=== PATIENT | female | born 1980 | race Asian ===

== ENCOUNTER 2016-09-25 11:14 | Inpatient (IN) | payer OTHER ==
[~2016-09-25] VITALS: Ht 160 cm; Wt 79.6 kg
[2016-09-25 11:31] VITALS: Ht 160 cm; Wt 79.6 kg
[2016-09-25] MEDS ORDERED: PRENAT PO (11:32)
[2016-09-25] MEDS ORDERED: LACTATED RINGER'S 1,000 ML IV ONE (12:30)
--- NOTE | 2016-09-25 12:44 | RADRPT ---
PROCEDURE: US OB biophysical profile. CLINICAL INDICATION: decreased movements, vaginal bleeding TECHNIQUE: Multiple sonographic images of the pelvis were obtained. The images were reviewed on a PACS workstation. COMPARISON: No prior studies are available for comparison. FINDINGS: There is a single viable intrauterine gestation. Cardiac activity is present with 158 beats per min [place]. There is a breech presentation. The placenta is left lateral. There is no evidence of placental abruption. The cervix could not be seen and therefore it is difficult to evaluate for possible low-lying placen ta. There is a normal amount of amniotic fluid with an MORRO = 15.2 cm. Biophysical profile: movement 2/2 tone 2/2. breathing 2/2 MORRO 2/2 Total 10/27 RPTAT: AA . IMPRESSION: Normal biophysical profile. Left lateral placenta with no evidence of abruption. Difficult evaluation for low-lying placenta due to an empty bladder. . .Errol Julien MD, MD Date Time Electronically viewed and signed by .Errol Julien MD, on 09/25/2016 12:43 .S/
--- NOTE | 2016-09-25 12:45 | RADRPT ---
PROCEDURE: US OB. CLINICAL INDICATION: Size and dates , bleeding TECHNIQUE: Multiple sonographic images of the pelvis and gravid uterus were obtained. The images were reviewed on a PACS workstation. COMPARISON: No prior studies are available for comparison. FINDINGS: The cervix was not seen. There is a single viable intrauterine gestation. Cardiac activity is present with 161 beats per min [place]. There is a breech presentation. The placenta is left lateral. There is no evidence for an abruption. Measurements were made in order to determine age. The results are as follows: BPD =8.2 cm HC =30 cm AC =29.3 cm FL =5.8 cm Estimated gestational age of approximately 32 weeks and 3 days based on ultrasound measurements. Clinical age: 32 weeks and 2 days. The estimated date of delivery is 11/17/16, based on ultrasound measurements. The EFW = 1960 g, 42%, based on LMP age. RPTAT: AA IMPRESSION: Single viable intrauterine gestation of approximately 32 weeks and 3 days based on ultrasound measu rements. .Errol Julien MD, MD Date Time Electronically viewed and signed by .Errol Julien MD, on 09/25/2016 12:45 .S/
[2016-09-25 12:50] LABS: ADD SCAN DIFF NO
[2016-09-25 12:51] LABS: BASOPHILS % 0.3 % (0.0-2.0); EOSINOPHILS # 0.1 10^3/ul (0.0-0.5); EOSINOPHILS % 0.7 % (0.0-7.0); HEMATOCRIT 36.2 % (37.0-47.0); HEMOGLOBIN 12.5 g/dl (12.0-16.0); LYMPHOCYTES # 1.5 10^3/ul (0.8-2.9); LYMPHOCYTES % 21.4 % (15.0-51.0); MEAN CORPUSCULAR HEMOGLOBIN 31.9 pg (29.0-33.0); MEAN CORPUSCULAR HGB CONC 34.5 g/dl (32.0-37.0); MEAN CORPUSCULAR VOLUME 92.3 fl (82.0-101.0); MEAN PLATELET VOLUME 10.8 fl (7.4-10.4); MONOCYTE # 0.7 10^3/ul (0.3-0.9); MONOCYTES % 9.6 % (0.0-11.0); NEUTROPHIL # 4.8 10^3/ul (1.6-7.5); NEUTROPHILS % 66.9 % (39.0-77.0); PLATELET COUNT 179 10^3/UL (140-415); RED BLOOD COUNT 3.92 10^6/ul (4.20-5.40); RED CELL DISTRIBUTION WIDTH 13.9 % (11.5-14.5); WHITE BLOOD COUNT 7.1 10^3/ul (4.8-10.8)
--- NOTE | 2016-09-25 13:48 | RADRPT ---
PROCEDURE: Limited obstetric ultrasound CLINICAL INDICATION: Bleeding TECHNIQUE: Multiple transverse and longitudinal grayscale images of the pelvis were obtained weaver sabdominally COMPARISON: same day FINDINGS: The cervix is closed with a length of 3.4 cm. There is a single viable intrauterine gestation. Cardiac activity is present with 139 beats per min [place]. There is a breech presentation. The placenta is left lateral. There is no evidence for an abruption or placenta previa. RPTAT: AA IMPRESSION: Cervix length measures 3.4 cm. .Errol Julien MD, MD Date Time Electronically viewed and signed by .Errol Julien MD, on 09/25/2016 13:48 .S/
--- NOTE | 2016-09-25 15:09 | HP ---
Date/Time of Note Date/Time of Note DATE: 09/25/16 TIME: 15:07 OB - History Hx of Present Free Text/Dictation 32+wks : 1 Para: 0 Care: Good Care Ultrasounds: Normal mid trimester US Obstetrical Complications: None Medical Complications: None Past Family/Social History * Past Medical, Surgical, Family and Obstetric Histories reviewed from chart. OB Admission Exam Physical Exam Abdomen: WNL Extremities: Normal Cervical Dilatation: None Effacement: 0% Station: Ballotable Membranes: Intact Heart Rate: 140's Accelerations: Accelerations Present Decelerations: No Decelerations Varibility: Moderate Contractions on Admission: >10 Minutes Apart Last 72 hours Lab Results CBC & BMP 09/25/16 12:35 OB Assessment/Plan Reason for admission: observation, labor Plan: Expectant Management Other plan: 1.Steroids 2.Mg 3.Perinatalogy consult 4.Neonatalogy consult BECKY GLYNN M.D. Sep 25, 2016 15:09
[2016-09-25] MEDS: LACTATED RINGER'S 1,000 ML IV SCH ×2 (15:59→16:01)
[2016-09-25] MEDS ORDERED: MAGNESIUM SULFATE 4 GM/100 ML 100 ML IV ONE (16:00)
[2016-09-25] MEDS ORDERED: ACETAMINOPHEN 325 MG TAB PO PRN (16:00)
[2016-09-25] MEDS: MAGNESIUM SULFATE 20 GM/500 ML 500 ML IV SCH ×2 (16:01→16:58)
[2016-09-25] MEDS: BETAMET NA PHOS/AC(6 MG/ML) 5ML INJ IM SCH (16:21)
--- NOTE | 2016-09-25 16:38 | TRIAGE ---
OB Triage Datetime Report Generated by CPN: 09/25/2016 16:37 Datetime: 09/25/2016 13:00 Labor Evaluation Frequency: 10 Monitor Mode: External Duration (sec)2399: 50-80 Quality: Mild Pattern: Normal: <= 5 Contractions in 10 Minutes Resting Tone [place]: Relaxed Heart Rate FHR Baseline Rate: 145 Monitor Mode: External US FHR Baseline Changes: No Baseline Change Variability: Moderate 6-25 bpm Accelerations: 15X15 Decelerations: None Category: Category I Datetime: 09/25/2016 11:30 Stage of : OB Triage Assessment Type: Triage Maternal Assessment Level of Consciousness: Fully Conscious DTR's/Clonus: DTRs 2+; No Clonus Headache: Denies Blurred Vision: No Respiratory Effort: Unlabored; Regular Rhythm; Equal Expansion Breath Sounds, Left: Clear and Equal Breath Sounds, Right: Clear and Equal Nausea/Vomiting: Denies RUQ Epigastric Pain: Denies Lower Extremities Edema: None Degree: None Upper Extremities Edema: None Degree: None Facial Edema: None Temperature Route: Oral Fall Risk Assessment History of Falling: (0) No Secondary Diagnosis: (0) No Ambulatory Aid: (0) Bedrest/Nurse Assist IV Therapy: (0) No Gait: (0) Normal/Bedrest/Immobile Mental Status: (0) Oriented to Own Ability Fall Score: 0 Fall Risk Score Definition: No Risk: No action required Labor Evaluation Frequency: 0 Monitor Mode: External Heart Rate FHR Baseline Rate: 150 Monitor Mode: External US FHR Baseline Changes: No Baseline Change Variability: Moderate 6-25 bpm Accelerations: 15X15 Decelerations: None Category: Category I Pain Assessment Pain Presence: None/Denies Pain Relief Measures: Comfort Measures Vaginal Exam Membrane Status: Intact Datetime: 09/25/2016 11:28 EGA: 32.2 Datetime: 09/25/2016 11:12 Time of Arrival: 09/25/2016 11:12 Arrived By: Ambulatory Arrived From: Home Chief Complaint: SPOTTING Movement: Present Contractions: Occasional Rupture of Membranes: Denies Vaginal Bleeding: None Vaginal Discharge: Denies Recent Sexual Intercouse: Denies Abdominal Trauma: Not Applicable Patient Complaints: Other Time Provider Notified: 09/25/2016 11:50 Provider Notified: Fernando Initial Plan: NST, BPP/MORRO, Placenta position, Cervical Length, CBC, Type and Screen
[2016-09-26] MEDS: MAGNESIUM SULFATE 20 GM/500 ML 500 ML IV SCH (02:30)
[2016-09-26] MEDS: LACTATED RINGER'S 1,000 ML IV SCH ×3 (02:44→12:55)
[2016-09-26] MEDS ORDERED: PRENATAL VITAMIN PO SCH (09:00)
[2016-09-26] MEDS ORDERED: MAGNESIUM SULFATE 20 GM/500 ML 500 ML IV SCH ×2 (11:53→15:00)
[2016-09-26] MEDS: BETAMET NA PHOS/AC(6 MG/ML) 5ML INJ IM SCH (16:02)
--- NOTE | 2016-09-26 21:28 | PD.PPDC ---
ARCHITECT MANAGER Discharge Instruction Condition Patient Condition: Good Diet Diet: Resume Regular Diet Activity/Restrictions Activity: May be up to bathroom May be up for meals May Shower Restrictions: No Exercising No Lifting Minimize Walking Minimize Stair-climbing No Sexual Activity Nothing in the Vagina No [place] No Tampons, douche Follow-up Follow-up with Physician: 2, Day/Days Return to clinic for LOOM CONTROL CHAIN BUILDER Instructions: Worsening abdominal pain Excessive Vaginal Bleeding ROSAURA GUERRERO MD Sep 26, 2016 21:28
[2016-09-26] MEDS ORDERED: NIFEdipine 10 MG CAP PO ONE (21:30)
--- NOTE | 2016-09-26 21:32 | DS ---
Date/Time of Note Date/Time of Note DATE: 09/26/16 TIME: 21:29 Obstetrical Discharge Record Final Diagnosis Final Diagnosis: not delivered Other Final Diagnosis contractions. Complications Labor Augmentation: No Induction: No Third Trimester Bleeding: Other (Contractions) Tocolytics: Magnesium Sulfate, Other (Procardia) Rupture of Membranes: No Condition on Discharge Physical Assessment Last Vitals: BP 121/70 Voiding: Yes Bowel Movement: Yes Breast: Soft, non-tender Fundus: Other (Gravid) Calf Tenderness: No Patient Condition: Good ROSAURA GUERRERO MD Sep 26, 2016 21:32
== END 2016-09-26 22:00 | disposition home or self-care (01) | DRG 778 ==
LOC: OBT 11:14 → L-D 11:17 → OBT 15:30 → OBG 15:43
PROVIDERS: ADMIT Obstetrics & Gynecology; ATTEND Obstetrics & Gynecology
DX: O60.03 Preterm labor without delivery, third trimester (principal); Z3A.32 32 weeks gestation of pregnancy
CPT/HCPCS: 36415; 76815; 76817; 76818; 83735; 85025; 86850; 86900; 86901; G0463; J0702; J3475; J7120

== ENCOUNTER 2016-11-02 04:00 | Inpatient (IN) | payer OTHER ==
[~2016-11-02] VITALS: Ht 160 cm; Wt 78.1 kg
[~2016-11-02 04:00] MED LIST: PRENAT PO
[2016-11-02 04:42] VITALS: Ht 160 cm; Wt 78.1 kg
[2016-11-02 04:43] VITALS: BP 138/80; PULSE 105; RESP 19
[2016-11-02] MEDS ORDERED: METHYLERGONOVINE 0.2 MG INJ IM PRN ×2 (05:00→09:30)
[2016-11-02] MEDS ORDERED: MISOPROSTOL 200 MCG TAB PR PRN ×2 (05:00→09:30)
[2016-11-02] MEDS ORDERED: CEFAZOLIN 2 GM/50 ML (PMX) 50 ML IV SCH (05:00)
[2016-11-02] MEDS ORDERED: OXYTOCIN 30 UNITS/LR 500 ML IV PRN ×3 (05:00→09:30)
[2016-11-02] MEDS ORDERED: CARBOPROST 250 MCG INJ IM PRN ×2 (05:00→09:30)
[2016-11-02] MEDS ORDERED: BUTORPHANOL 2 MG INJ IV PRN ×2 (05:30)
[2016-11-02] MEDS ORDERED: ONDANSETRON 4 MG INJ IV STA (06:21)
[2016-11-02] MEDS ORDERED: CITRIC ACID/NA CITRATE 30 ML CUP ONE (06:24)
[2016-11-02] MEDS ORDERED: ONDANSETRON 4 MG INJ ONE (06:24)
[2016-11-02] MEDS ORDERED: CITRIC ACID/NA CITRATE 30 ML CUP PO ONE (06:30)
[2016-11-02 06:32] LABS: BASOPHILS % 0.3 % (0.0-2.0); EOSINOPHILS % 0.3 % (0.0-7.0); HEMATOCRIT 39.1 % (37.0-47.0); HEMOGLOBIN 13.2 g/dl (12.0-16.0); LYMPHOCYTES # 1.6 10^3/ul (0.8-2.9); LYMPHOCYTES % 15.7 % (15.0-51.0); MEAN CORPUSCULAR HEMOGLOBIN 31.2 pg (29.0-33.0); MEAN CORPUSCULAR HGB CONC 33.8 g/dl (32.0-37.0); MEAN CORPUSCULAR VOLUME 92.4 fl (82.0-101.0); MONOCYTE # 0.9 10^3/ul (0.3-0.9); MONOCYTES % 9.5 % (0.0-11.0); NEUTROPHIL # 7.2 10^3/ul (1.6-7.5); NEUTROPHILS % 73.4 % (39.0-77.0); PLATELET COUNT 168 10^3/UL (140-415); RED BLOOD COUNT 4.23 10^6/ul (4.20-5.40); RED CELL DISTRIBUTION WIDTH 13.3 % (11.5-14.5); WHITE BLOOD COUNT 9.9 10^3/ul (4.8-10.8)
[2016-11-02] MEDS ORDERED: PHENYLephrine (100 MCG/ML) 5ML SYG ONE (06:36)
[2016-11-02] MEDS ORDERED: morphine SULFATE/PF (10 MG/10 ML) INJ ONE (06:36)
[2016-11-02] MEDS ORDERED: OXYTOCIN 10 UNIT INJ ONE (06:37)
[2016-11-02 06:59] LABS: INR 0.85; PROTIME 11.6 Sec (12.2-14.2); PT RATIO 0.9
[2016-11-02 07:00] LABS: PARTIAL THROMBOPLASTIN TIME 31.2 Sec (25.0-35.0)
[2016-11-02] MEDS ORDERED: BUPIVACAINE 0.25% (MPF) 30 ML INJ ONE (07:02)
[2016-11-02] MEDS ORDERED: FENTAnyl 50 MCG/ML VIAL ONE ×2 (07:36→08:06)
[2016-11-02] MEDS ORDERED: PROPOFOL 20 ML ONE (07:46)
[2016-11-02] MEDS ORDERED: MIDAZOLAM 1 MG/ML 2 ML INJ ONE (07:55)
[2016-11-02] MEDS ORDERED: KETOROLAC 30 MG INJ ONE (08:10)
[2016-11-02] MEDS ORDERED: DEXAMETHASONE 4 MG/ML 1 ML INJ ONE (08:11)
[2016-11-02] MEDS ORDERED: NALOXONE (0.4 MG/ML) INJ IV PRN (09:00)
[2016-11-02] MEDS ORDERED: ZOLPIDEM 5 MG TAB PO PRN (09:00)
[2016-11-02] MEDS ORDERED: KETOROLAC 30 MG INJ IV PRN (09:00)
[2016-11-02] MEDS ORDERED: ONDANSETRON 4 MG INJ IV PRN (09:00)
[2016-11-02] MEDS ORDERED: DIPHENHYDRAMINE 50 MG INJ IV PRN (09:00)
--- NOTE | 2016-11-02 09:20 | OPR ---
Operative Report Planned Procedure Procedure date Nov 02, 2016 Procedure(s) Primary section Performed by: ROSAURA GUERRERO MD Assisting provider: YVAN TREVINO MD Anesthesiologist: DANA FAUSTIN Pre-procedure diagnosis IUP at 37w 5d Breech. Ruptured membranes-in labor. Anesthesia Type: spinal Procedure Description Under satisfactory spinal anesthesia, the patient was prepped and draped and placed in a supine position, tilted to the left. Pfannenstiel incision was made , carried through the subcutaneous tissue. Bleeders brought under control with electrocautery. Fascia incised to the length of the incision. Rectus muscles from the fascia, divided midline. Peritoneum exposed, entered through a transverse incision. Exploration of abdomen revealed gravid uterus. Bladder flap was developed. Transverse incision was made in the lower segment of the uterus. Amniotic sac ruptured. Clear amniotic fluid noted. Baby was footing breech and delivered relatively easily. Nasal oropharyngeal suction was performed. The baby was handed to the team for immediate attention. The placenta was did not deliver readily and the left sided portion had some difficulty from the uterus but was delivered intact. Uterine cavity was cleaned with wet sponge. Uterus closed in 2 layers using #1 chromic in continuous fashion. Peritoneal cavity irrigated with warm saline. Sponge, needle and instrument count reported to be correct. Abdominal peritoneum closed with 2-0 chromic continuously. Rectus muscle approximated with the same suture. Fascia closed with 0-Vicryl, and subcutaneous tissue closed with 2-0 chromic and the skin was closed with 3-0 Monocryl in a subcuticular stitch. Steristrips with Benzoin were placed on the incision and a pressure dressing was applied over all. Estimated blood loss 800mL. Post-Procedure Post-procedure diagnosis Same. Findings: Live Baby boy, Apgars 8 and 9, weight 4235 grams or 9# 5 oz, footling breech Complications: None Pt Condition post procedure: stable Disposition: PACU Physician Certification I, the undersigned physician, hereby certify that I have discussed the procedure described in this consent form with this patient (or the patient's legal senior patient account representative), including: * The risk and benefits of the procedure; * Any adverse reactions that may reasonably be expected to occur; * Any alternative efficacious methods of treatment which may be medically viable ; * The potential problems that may occur during recuperation; * Potential for blood transfusion and associated risks/benefits; and * Any research or economic interest I may have regarding this treatment. I further certify that the patient/legally responsible person was encouraged to ask question and that all questions were answered. ROSAURA GUERRERO MD Nov 02, 2016 09:20
[2016-11-02] MEDS ORDERED: OXYTOCIN 30 UNITS/LR 500 ML IV SCH ×2 (09:30)
[2016-11-02] MEDS ORDERED: OXYCODONE/ACETAMINOPHEN (5/325) TAB PO PRN (09:30)
[2016-11-02] MEDS: OXYTOCIN 30 UNITS/LR 500 ML IV SCH ×2 (10:50→13:10)
[2016-11-02] MEDS: HYDROmorphONE 1 MG/ML SYG IV PRN ×4 (10:55→23:06)
[2016-11-02 12:10] VITALS: BP 140/80; PULSE 95; RESP 17
[2016-11-02] MEDS: IBUPROFEN 800 MG TAB PO SCH ×2 (13:33→22:00)
[2016-11-02] MEDS: LACTATED RINGER'S 1,000 ML IV SCH ×3 (15:26→23:06)
[2016-11-02 16:20] VITALS: BP 115/71; PULSE 109; RESP 18
[2016-11-02 20:00] VITALS: BP 120/65; PULSE 75; RESP 20
[2016-11-03] MEDS: HYDROmorphONE 1 MG/ML SYG IV PRN ×2 (02:24→07:20)
[2016-11-03 04:08] VITALS: BP 120/65; PULSE 85; RESP 20
[2016-11-03] MEDS: IBUPROFEN 800 MG TAB PO SCH ×3 (06:00→21:41)
[2016-11-03] MEDS: LACTATED RINGER'S 1,000 ML IV SCH (06:49)
[2016-11-03 07:20] VITALS: BP 127/62; PULSE 102; RESP 20
[2016-11-03] MEDS: SENNA/DOCUSATE NA (8.6MG/50MG) TAB PO PRN ×2 (09:36→21:41)
[2016-11-03] MEDS: OXYCODONE/ACETAMINOPHEN (5/325) TAB PO PRN (10:47)
[2016-11-03 12:37] LABS: BASOPHILS % 0.2 % (0.0-2.0); EOSINOPHILS % 0.2 % (0.0-7.0); HEMATOCRIT 27.2 % (37.0-47.0); HEMOGLOBIN 9.3 g/dl (12.0-16.0); LYMPHOCYTES # 1.5 10^3/ul (0.8-2.9); LYMPHOCYTES % 11.9 % (15.0-51.0); MEAN CORPUSCULAR HEMOGLOBIN 32.3 pg (29.0-33.0); MEAN CORPUSCULAR HGB CONC 34.2 g/dl (32.0-37.0); MEAN CORPUSCULAR VOLUME 94.4 fl (82.0-101.0); MEAN PLATELET VOLUME 11.3 fl (7.4-10.4); MONOCYTE # 0.9 10^3/ul (0.3-0.9); MONOCYTES % 7.2 % (0.0-11.0); NEUTROPHILS % 78.7 % (39.0-77.0); PLATELET COUNT 150 10^3/UL (140-415); RED BLOOD COUNT 2.88 10^6/ul (4.20-5.40); RED CELL DISTRIBUTION WIDTH 13.3 % (11.5-14.5); WHITE BLOOD COUNT 12.4 10^3/ul (4.8-10.8)
--- NOTE | 2016-11-03 13:29 | QN ---
Documentation Comment Progress Note POD #1 Pt doing well. +flatus but abdomen is a little distended but not uncomfortable. Tolerating a regular diet. Pain management has not been optimal but pt refused her first dose of Motrin this AM. The next is due at 1400. T=98.6 BP127/62 Abdomen so distended. Dressing clean, dry and intact. Lochia moderate. WBC12.4 Hgb 9.3 Plts 150K P: Continue care. Mylicon now. Explained why Motrin 800 mg is important. ROSAURA GUERRERO MD Nov 03, 2016 13:29
[2016-11-03 15:35] VITALS: BP 109/64; PULSE 101; RESP 18
[2016-11-03 21:00] VITALS: BP 106/55; PULSE 98; RESP 18
[2016-11-04 04:00] VITALS: BP 119/74; PULSE 92; RESP 19
[2016-11-04] MEDS: IBUPROFEN 800 MG TAB PO SCH ×3 (05:48→21:51)
[2016-11-04 08:00] VITALS: BP 118/65; PULSE 93; RESP 18
[2016-11-04] MEDS: SENNA/DOCUSATE NA (8.6MG/50MG) TAB PO PRN ×2 (08:47→21:51)
[2016-11-04] MEDS: OXYCODONE/ACETAMINOPHEN (5/325) TAB PO PRN (08:47)
[2016-11-04 16:00] VITALS: BP 119/76; PULSE 95; RESP 18
[2016-11-04 20:00] VITALS: BP 128/79; PULSE 88; RESP 20
--- NOTE | 2016-11-04 23:30 | QN ---
Documentation Comment Progress Note POD #2 Pt is doing well. . Is supplementing with formula as the baby has a little jaundice.Good enough pain control with Motrin 800 as does not like how she feels with the Percodan. + flatus but no BM yet. Is taking Senakot and colace combo. Took a shower. T=98 BP 128/79 Incision is clean, dry and intact. Lochia moderate. Ext: NT no edema. P:Continue care and hopefully will be going home tomorrow as long as the baby can. ROSAURA GUERRERO MD Nov 04, 2016 23:30
[2016-11-05] MEDS: OXYCODONE/ACETAMINOPHEN (5/325) TAB PO PRN ×3 (03:42→22:25)
[2016-11-05 04:00] VITALS: BP 113/60; PULSE 84; RESP 18
[2016-11-05] MEDS: IBUPROFEN 800 MG TAB PO SCH ×3 (05:30→22:09)
[2016-11-05 07:15] VITALS: BP 109/62; PULSE 80; RESP 19
[2016-11-05] MEDS ORDERED: DIPHTH/TET/ACEL PERTUSS (ADULT) 0.5 ML VIAL IM* ONE (09:00)
[2016-11-05] MEDS: SENNA/DOCUSATE NA (8.6MG/50MG) TAB PO PRN ×2 (10:41→21:12)
[2016-11-05 16:00] VITALS: BP 123/70; PULSE 82; RESP 19
--- NOTE | 2016-11-05 18:28 | PD.PPDC ---
SHOP HELPER Discharge Instruction Condition Patient Condition: Good Diet Diet: Resume Regular Diet Activity/Restrictions Activity: Bedrest May be up to bathroom May be up for meals May Shower Restrictions: No Exercising No Lifting No Driving Minimize Walking Minimize Stair-climbing No Sexual Activity Nothing in the Vagina No [place] No Tampons, douche Wound/Drain Care Instructions Wound/Drain Care Instructions: Wash with soap and water Keep clean and dry Follow-up Follow-up with Physician: 2, Week/Weeks Return to clinic for REAL ESTATE FIRM MANAGER Instructions: Fever greater than 101 [place] Worsening abdominal pain Excessive Vaginal Bleeding OB Instructions: Breast Tenderness Depression Surgical Instructions: Incisional Drainage Incisional Redness ROSAURA GUERRERO MD Nov 05, 2016 18:27
[2016-11-05] MEDS ORDERED: IBUP800T25 PO (18:29)
[2016-11-05] MEDS ORDERED: Oxycodone/Acetamin (5/325) PO (18:29)
--- NOTE | 2016-11-05 18:32 | DS ---
Date/Time of Note Date/Time of Note DATE: 11/05/16 TIME: 18:30 Obstetrical Discharge Record Final Diagnosis Final Diagnosis: Term delivered Section Section: Primary Primary Indication Breech, SROM, in labor. Complications Augmentation: No Induction: No Condition on Discharge Physical Assessment Last Vitals: T=98.2 BP 123/70 Voiding: Yes Bowel Movement: Yes Breast: Filling Fundus: Firm Abdomen and Incision: Clean dry and intact. Steri-strips present. Calf Tenderness: No Patient Condition: Good ROSAURA GUERRERO MD Nov 05, 2016 18:32
[2016-11-05 20:00] VITALS: BP 131/78; PULSE 94; RESP 20
[2016-11-06 04:00] VITALS: BP 115/72; PULSE 84; RESP 18
[2016-11-06] MEDS: IBUPROFEN 800 MG TAB PO SCH ×2 (06:04→13:26)
[2016-11-06 07:30] VITALS: BP 126/76; PULSE 87; RESP 19
[2016-11-06] MEDS: SENNA/DOCUSATE NA (8.6MG/50MG) TAB PO PRN (08:17)
--- NOTE | 2016-11-11 21:36 | HP ---
Date/Time of Note Date/Time of Note DATE: 11/11/16 TIME: 21:30 OB - History Hx of Present Free Text/Dictation 35 y.o. G1 with an IUP at 37w 5d with a known breech presentation rochelle in with ruptured membranes and in active labor and was promptly prepared for a primary . Chief Complaint: Labor, ROM, breech. Last Menstrual Period: Feb 12, 2016 Estimated Due Date: Nov 18, 2016 : 1 Para: 0 Spontaneous : 0 Therapeutic : 0 Care: Good Care Ultrasounds: Normal mid trimester US Obstetrical Complications: None Medical Complications: None Other Concerns: PMHx: none. PSHx: none. NKDA. Past Family/Social History * Past Medical, Surgical, Family and Obstetric Histories reviewed from chart. Blood Type: O+ Rubella: immune RPR/VDRL: Negative GBS Status: Negative HBsAG: Negative OB Admission Exam Vital Signs Vital Signs Normotensive, afebrile. Physical Exam HEENT: WNL Heart: Rhythm Normal Lungs: Clear Abdomen: WNL Extremities: Normal Reflexes: Normal Cervical Dilatation: 3cm Effacement: Other (90%) Station: -2 Membranes: Ruptured Amniotic Fluid: Clear Heart Rate: 140's Accelerations: Accelerations Present Decelerations: No Decelerations Varibility: Moderate Contractions on Admission: < 5 Minutes Apart OB Assessment/Plan Reason for admission: active labor, rupture of membranes Other Assessment: Breech Plan: Section ROSAURA GUERRERO MD Nov 11, 2016 21:36
== END 2016-11-06 14:22 | disposition home or self-care (01) | DRG 766 ==
LOC: OBT 04:00 → L-D 04:00 → OBT 04:05 → L-D 06:33 → PP1 12:21
PROVIDERS: ADMIT Obstetrics & Gynecology; ATTEND Obstetrics & Gynecology
PROC: 10D00Z1 Extraction of Products of Conception, Low, Open Approach (ICD-10-PCS; principal; 2016-11-02 07:30)
DX: O32.1XX0 Maternal care for breech presentation, not applicable or unspecified (principal); Z37.0 Single live birth; Z3A.37 37 weeks gestation of pregnancy
CPT/HCPCS: 36415; 62319; 85025; 85610; 85730; 86592; 86850; 86900; 86901; 87340; 94760; 99464; G0463; J0595; J0690; J1100; J1170; J1885; J2210; J2250; J2274; J2370; J2405; J2590; J3010; J7120